=== PATIENT | male | born 1950 | race Caucasian/White ===

== ENCOUNTER → 2023-09-01 16:09 | Outpatient (CLI) | payer OTHER, SELFPAY ==
--- NOTE | 2023-09-01 16:51 | DI.RAD.S_ITS ---
PROCEDURE: XR CHEST 2V INDICATIONS: ASBESTOS EXPOSURE TECHNIQUE: 2 views of the chest were acquired. COMPARISON: None. FINDINGS: Surgical changes and devices: None. Lungs and pleura: There are few irregular opacities projecting in the left lateral mid lung which may be calcified pleural plaques. Mild biapical pleural plaquing. No focal consolidation, effusion, or pneumothorax. Mediastinum: Mediastinal contours are normal. Heart size is normal. Bones and chest wall: No suspicious bony abnormalities. Soft tissues appear unremarkable. IMPRESSION: Probable biapical and left lung calcified pleural plaques. No radiographic findings of suspicious mass lesion. Dictated by: Elma Caro M.D. on 09/02/2023 at 12:01 Approved by: Elma Caro M.D. on 09/02/2023 at 12:03
== END ==
LOC: RESP 16:11
PROVIDERS: Referring Provider Chiropractor; Visit Provider Chiropractor
DX: Z77.090 Contact with and (suspected) exposure to asbestos (principal)
CPT/HCPCS: 71046; 94060